=== PATIENT | female | born 1985 | race Caucasian/White ===

== ENCOUNTER → 2016-10-10 | Outpatient (CLI) | payer OTHER | END | disposition home or self-care (01) | LOC: C.LABBFT 07:44 | PROVIDERS: ATTEND Internal Medicine Endocrinology, Diabetes & Metabolism | DX: L68.0 Hirsutism (principal); R19.7 Diarrhea, unspecified; R14.0 Abdominal distension (gaseous) ==

== ENCOUNTER → 2016-10-16 | Outpatient (CLI) | payer OTHER | END | disposition home or self-care (01) | LOC: C.LABBFT 07:57 | PROVIDERS: ATTEND Internal Medicine Endocrinology, Diabetes & Metabolism | DX: L68.0 Hirsutism (principal); R19.7 Diarrhea, unspecified; R10.9 Unspecified abdominal pain; R14.0 Abdominal distension (gaseous) ==

== ENCOUNTER → 2017-06-27 | Outpatient (CLI) | payer OTHER | END | disposition home or self-care (01) | LOC: C.PAPS 12:07 | PROVIDERS: ATTEND Physician Assistant | DX: Z12.4 Encounter for screening for malignant neoplasm of cervix (principal) ==

== ENCOUNTER 2020-02-22 07:38 | Inpatient (IN) ==
[2020-02-22] MEDS ORDERED: OXYTOCIN 30 UNITS/500 ML BAG IV PRN ×2 (08:30→08:31)
[2020-02-22 08:54] LABS: Hematocrit (blood only) 39.1 % (37-47); Hemoglobin 13.2 g/dL (12.0-16.0); Mean Corpuscular Hemoglobin 29.6 pg (25-34); Mean Corpuscular Volume 87.7 fL (80-100); Platelet Count 229 K/uL (130-400); RDW Coefficient of Variation 14.9 % (11.5-14.5); RDW Standard Deviation 47.8 fL (36.4-46.3); Red Blood Count 4.46 M/uL (4.2-5.4); White Blood Count 15.67 K/uL (4.8-10.8)
[2020-02-22] MEDS: LACTATED RINGER'S 1,000 ML IV PRN ×2 (09:23→12:48)
[2020-02-22 10:38] LABS: Mean Corpuscular Hgb Conc 33.8 g/dL (32-36)
--- NOTE | 2020-02-22 10:39 | History & Physical Report ---
Date of Service February 22, 2020 Assessment & Plan (1) Supervision of normal intrauterine in primigravida: 34yo At 40.4 weeks GA. IOL for post SHELDON 1. Fetus: Cat 1 2. Labor: Will start with oxytocin, AROM when able 3. GBS Negative 4. Vitals WNL 5. Abd cyst: Notify Peds (2) Obesity affecting , antepartum: (3) Need for rhogam due to Rh negative mother: History of Present Illness Primary Care Provider: Rona Hernandez MD 34yo at 40w4d GA. Presents for late term IOL. Sanchez placed last night. Denies LOF, VB. Good FM. complicated by a abdominal cyst of unclear etiology, Rh negative, BMI of 46 and excessive maternal weight gain. US at 32 weeks shows EFW 57%, AC 56%. OB Labs: Blood Type O Negative 07/07/19 Antibody Screen NEGATIVE 11/30/19 Hemoglobin 11.9 g/dL (12.0-16.0) L 11/26/19 Hematocrit 36.5 % (37-47) L 11/26/19 Mean Corpuscular Volume 89.8 fL (80-100) 07/07/19 Platelet Count 276 K/uL (130-400) 07/07/19 Rubella IgG Antibody Immune (Immune) 07/07/19 Rapid Plasma Reagin Nonreactive (Nonreactive) 07/07/19 Hepatitis B Surface Antigen Neg (Neg) 07/07/19 HIV (1&2) Ab and P24 Ag, 4th Gener Neg (Neg) 07/07/19 Glucose 1 Hour 50 gm Load 178 mg/dl (70-130) H 09/01/19 OB Optional Labs: Chlamydia trachomatis RNA NOT DETECTED (NOT DETECTED) 07/07/19 Neisseria gonorrhoeae RNA NOT DETECTED (NOT DETECTED) 07/07/19 Thyroid Stimulating Hormone (TSH) 0.932 uIu/ml (0.300-4.500) 10/15/18 Labs Reviewed: declines cf/sma declines cfDNA declines quad 09/13/19: 85/166/108 11/26/19: 77/129/119 gbs neg Allergies Allergy/AdvReac Type Severity Reaction Status Date / Time No Known Allergies Allergy Verified 02/21/20 19:14 Home Medications Home Medications Medication Instructions Recorded Confirmed Type vit-iron fum-folic ac 1 tab PO DAILY 02/13/20 02/22/20 History [ Vitamin] Patient History Medical History (Updated 02/22/20 @ 07:54 by Shnanon Eugene RN) Abnormal biochemical finding on screening of mother cyst on kidney, pt following with MFM in [place] BMI 35.0-35.9,adult (Resolved) Encounter for anatomic survey Fatty liver (Acute) Hirsutism (Acute) Left breast lump Patient monitoring. No change. Had an ultrasound. 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 Other Information That Helps Us Care for You: No Feels Safe at Home: Yes Smoking Status: Never smoker Second Hand Exposure: No ; Hx Alcohol Use: No Hx Substance Use: No Dental Care, Regularly: Yes Physical Activity Frequency: 3-4 Times per Week Physical Exam Respiratory: normal respiratory effort; no respiratory distress and no labored breathing Cardiovascular: Rate/Rhythm: regular rate and regular rhythm Gastrointestinal (Abdomen): Inspection/Auscultation: abdomen not distended Percussion/Palpation: abdomen soft; abdomen nontender, no guarding and abdomen not rigid Psychiatric: A+Ox3, euthymic affect Genitourinary: OB Exam Abdomen: + vertex (By US) and + estimated weight (7.5-8.5) Manual OB Exam: + cervical dilation 1 cm, + cervical effacement 50% and + station high OB Exam Monitor Tracing: + external FHT monitor used, + external uterine monitor used, + category I and + normal FHT variability; no early decelerations present, no late decelerations present and no variable decelerations Results & Data Vital Signs (Past 12 Hours) Vital Signs Temp Pulse Resp BP 02/22/20 10:14 90 107/60 02/22/20 09:27 102 H 109/64 02/22/20 08:01 110 H 109/70 02/22/20 07:55 36.8 C 18 Coding Level of Care Code None Diagnoses Supervision of normal intrauterine in primigravida Z34.00 Obesity affecting , antepartum O99.210 Need for rhogam due to Rh negative mother Z29.13
[2020-02-22] MEDS ORDERED: CITRIC ACID/SODIUM CITRATE 15 ML UDC ONE (14:35)
--- NOTE | 2020-02-22 14:46 | Anesthesiology Consultation ---
Date of Service February 22, 2020 Assessment & Plan (1) Encounter for pre-operative examination: Chart Review Chart Review: Acceptable Risk for Surgery and Patient NOT seen in Pre Admission Testing Consults Requested none ASA ASA3 Proposed Anesthesia Anesthesia Type: Spinal Risk / Benefits Reviewed With: PT / POA / Parent / Guardian, Accepts Plan and Informed Consent Obtained History Height/Weight Height: 5 ft 6 in Weight: 129.274 kg Allergies Allergy/AdvReac Type Severity Reaction Status Date / Time No Known Allergies Allergy Verified 02/21/20 19:14 Medications Home Medications Medication Instructions Recorded Confirmed Last Taken vit-iron fum-folic ac 1 tab PO DAILY 02/13/20 02/22/20 02/21/20 [ Vitamin] Active Medications Generic Name Dose Route Start Last Admin Trade Name Freq PRN Reason Stop Dose Admin Lactated Ringer's 1,000 mls @ 125 mls/hr 02/22/20 08:30 02/22/20 14:28 Lr IV 02/24/20 08:29 999 mls/hr .Q8H PRN Infusion L&D Protocol Protocol Oxytocin 30 units in 500 mls @ 0 mls/hr 02/22/20 08:31 02/22/20 14:28 Pitocin IV 02/24/20 08:30 0 units/hr .Q0M PRN 0 mls/hr Labor Induction/Augmentation Titration Protocol 0 UNITS/HR NPO Date Last Intake of Fluids: 02/22/20 Time Last Intake of Fluids: 12:30 Date Last Intake of Solids: 02/22/20 Time Last Intake of Solids: 06:30 Past Medical History Medical History Abnormal biochemical finding on screening of mother cyst on kidney, pt following with MFM in [place] BMI 35.0-35.9,adult (Resolved) Encounter for anatomic survey Fatty liver (Acute) Hirsutism (Acute) Left breast lump Patient monitoring. No change. Had an ultrasound. Metabolic syndrome (Acute) Obesity (Acute) Polycystic ovarian syndrome (Acute) Striae (Acute) Tinea versicolor (Acute) Varicella Exercise / Class Metabolic Activity II 4-5 Yardwork/Stairs/Walk up hill Past Family History Family History Mother Hypertension History of pancreatic cancer Grandfather Myocardial infarction Father Bipolar 1 disorder Denies family history of Ovarian cancer Prostate cancer Breast cancer Colorectal cancer Past Surgical History Surgical History No pertinent past surgical history Past Anesthesia History No Family Hx of Anesthesia Complications History of PONV Hx of Motion Sickness Social History Smoking Status: Never smoker Hx Alcohol Use: No Hx Substance Use: No substance use type: does not use Review of Systems Negative for chest pain or shortness of breath. Patient denies active symptoms of GERD. Patient denies numbness, tingling or weakness in lower extremities. Patient denies history of abnormal bleeding or bleeding disorder. Patient denies active use of anticoagulants other than low dose aspirin. Physical Exam Vital Signs Last Vital Signs Temp 36.8 C 02/22/20 10:56 Pulse 87 02/22/20 11:53 Resp 20 02/22/20 10:56 BP 124/81 02/22/20 13:03 Constitutional + morbidly obese gravid uterus ENMT Mouth: no TMJ abnormality and oral opening not small Thyromental Distance: > or= 3.5 Finger Breadths Mallampati Class: I Neck normal visual inspection; neck extension not limited Respiratory normal respiratory effort Auscultation: lungs clear to auscultation bilaterally Cardiovascular Rate/Rhythm: regular rate and regular rhythm Heart Sounds: no murmur Neurologic moves all extremities Motor/Sensory: no sensory deficit Psychiatric Orientation: alert and oriented x 3 Testing Laboratory Results 02/22/20 08:39 Blood Type O Negative 02/22/20 08:39 Antibody Screen NEGATIVE 02/22/20 08:39
[2020-02-22] MEDS ORDERED: CEFAZOLIN 3000MG 72.5 ML IV STA (14:50)
[2020-02-22] MEDS ORDERED: OXYTOCIN 10 UNITS/ML VIAL ONE (14:56)
[2020-02-22] MEDS ORDERED: MoRPHine SULFATE PF 1 MG/ML 10 ML AMP/VIAL ONE (14:56)
[2020-02-22] MEDS ORDERED: fentaNYL citrate 100 MCG/2 ML VIAL ONE (14:56)
[2020-02-22] MEDS ORDERED: SODIUM CHLORIDE 0.9% 1000ML 1,000 ML IV SCH (15:30)
[2020-02-22] MEDS ORDERED: NALOXONE HCL 1 MG in SODIUM CHLORIDE 0.9% 1000ML 1,000 ML IV PRN (15:30)
[2020-02-22] MEDS ORDERED: LACTATED RINGER'S 500 ML IV PRN (15:30)
[2020-02-22] MEDS ORDERED: NALOXONE HCL 0.08 MG in SYRINGE 1.8 ML IV PRN (15:30)
[2020-02-22] MEDS ORDERED: ePHEDrine sulfate 50 MG/ML AMP IV PRN (15:30)
[2020-02-22] MEDS ORDERED: DiphenhydrAMINE HCL 50 MG/ML VIAL IV PRN (15:30)
[2020-02-22] MEDS ORDERED: ONDANSETRON INJ 2 MG/ML 2 ML VIAL IV PRN (15:30)
[2020-02-22] MEDS ORDERED: HYDROmorphone INJ 0.5 MG/0.5 ML SYR IV PRN (15:30)
[2020-02-22] MEDS ORDERED: NO NARCOTICS OR SEDATIVES SCH (15:30)
[2020-02-22] MEDS ORDERED: KETOROLAC 30 MG/ML VIAL IV PRN (15:30)
[2020-02-22] MEDS ORDERED: ACETAMINOPHEN 1000 MG/100 ML IV IV PRN (15:30)
[2020-02-22] MEDS ORDERED: NALOXONE HCL 0.4 MG/1 ML VIAL/CARP IV PRN (15:30)
[2020-02-22] MEDS ORDERED: NALBUPHINE HCL INJ 10 MG/ML AMP IV PRN (15:30)
[2020-02-22] MEDS ORDERED: MoRPHine SULFATE PF 1 MG/ML 10 ML AMP/VIAL INT SPINAL ONE (15:30)
[2020-02-22] MEDS ORDERED: DC INTRASPINAL MORPHINE SCH (15:30)
[2020-02-22] MEDS ORDERED: ONDANSETRON INJ 2 MG/ML 2 ML VIAL ONE (15:47)
[2020-02-22] MEDS ORDERED: PHENYLEPHRINE 100MCG/ML 5ML SYR ONE (16:01)
[2020-02-22] MEDS ORDERED: MAGNESIUM HYDROXIDE SUSP 30 ML UDC PO PRN (16:08)
[2020-02-22] MEDS ORDERED: BENZOCAINE 20% AER SPR 82.5 GM CAN EXT PRN (16:08)
[2020-02-22] MEDS ORDERED: SENNA 8.6 MG TAB PO PRN (16:08)
[2020-02-22] MEDS ORDERED: DIPHTHERIA/TETANUS/PERTUSSIS 0.5 ML SYR/VIAL IM ONE (16:08)
[2020-02-22] MEDS ORDERED: HYDROCORTISONE ACETATE 25 MG SUPP PR PRN (16:08)
[2020-02-22] MEDS ORDERED: SUPERCREAM 0.870% 15 GM JAR EXT PRN (16:08)
--- NOTE | 2020-02-22 16:30 | Post Operative Brief Note ---
PG Immediate Post Op with CF Date of Surgery February 22, 2020 Pre & Post Diagnosis Operation Date: 02/22/20 15:00 Pre-Op Diagnosis: 1. IUP at 40 4/7 weeks 2. intolerance of labor 3. Inability to augment labor remote from delivery Post-Op Diagnosis: Same I identified the patient and participated in the time-out.: Yes Procedure Operation Date: 02/22/20 15:00 Actual Procedures p Section in LD with the of a live male child at 1534. - Catrachito Ortiz MD Surgeon Catrachito Ortiz MD Water Valve Mechanic Hector Nazario PGY1 Estimated Blood Loss 600 Findings Consistent with Post-Op Diagnosis Specimens Specimen Description: 1. Placenta- Hold 2. Cord Blood Drains Chopra Catheter (clear yellow urine noted upon insertion of chopra)
[2020-02-22] MEDS ORDERED: KETOROLAC 30 MG/ML VIAL ONE (16:45)
--- NOTE | 2020-02-22 17:33 | Operative Report (OR) ---
DATE OF OPERATION: 02/22/2020 PROCEDURE: Primary low transverse section. SURGEON: Catrachito Ortiz MD. EPIC APPLICATION COORDINATOR: Hector Nzaario MD PGY-1. PREOPERATIVE DIAGNOSES: 1. intolerance of labor. 2. Inability to augment labor, remote from delivery. POSTOPERATIVE DIAGNOSES: 1. intolerance of labor. 2. Inability to augment labor, remote from delivery, status post procedure. ESTIMATED BLOOD LOSS: 600 mL. DRAINS: Sanchez catheter. FLUIDS: Continuous lactated Ringer. URINE OUTPUT: Per Sanchez catheter. COMPLICATIONS: None. FINDINGS: Viable male infant with weight pending and Apgars pending. INDICATIONS: Cici is a 34-year-old who presented for induction of labor for post-SHELDON. At initial evaluation, the patient was found to be 1 cm dilated, 50% effaced with negative 3-4 station. The fetus was noted to be cephalic by ultrasound. The patient was started on oxytocin per regular protocol. The patient reached a Pitocin level of approximately 8, at which time she began having recurrent late decelerations. Maternal positioning and resuscitation was attempted with initial resolution; however, the late decelerations and minimal variability did recur. At that point, the patient was still 1 cm dilated, 50% effaced and negative 3-4 station. We discussed the cervical findings and the intolerance of labor and that we were unlikely to achieve vaginal delivery due to the intolerance of labor, remote from delivery. At that time, the patient was offered an attempt to continue labor versus a section. The patient opted to proceed with a section. Consents were reviewed and signed. DESCRIPTION OF PROCEDURE: The patient was taken to the operating room after consents were ensured. The spinal anesthesia was obtained without difficulty. The patient was then prepped and draped in normal sterile fashion. Preprocedural timeout was performed. The abdomen was tested to ensure adequate surgical levels, after which a Pfannenstiel skin incision was made with a knife. This was carried down to underlying fascia with the Bovie and blunt dissection. The fascia was nicked at the midline with the knife. The fascial incision was extended laterally in each direction with pickups and Davis scissors. The superior aspect of the fascia was then grasped with Kochers x2, elevated off the underlying rectus muscles using the knife and blunt dissection. The inferior aspect of the fascia was then grasped with Kochers x2, elevated off the underlying rectus muscle using blunt dissection. The abdomen was entered bluntly and placed on stretch to provide adequate room for delivery. A bladder blade was inserted and a bladder flap was created in normal fashion. A low transverse uterine incision was then made with a knife. This was extended laterally with blunt dissection and the head of the was noted to be cephalic and was delivered through the hysterotomy without difficulty. The body and shoulders quickly followed. The was noted to be vigorous soon after delivery and a short delay of cord clamping was initiated. The cord was then double clamped and cut. was taken over to the waiting nursery staff. Cord segment and cord blood was then obtained. Attention was then turned to deliver the placenta, which was delivered intact with 3-vessel cord with gentle cord traction. The cord was then removed with uterine massage and gentle cord traction, was noted to be intact, 3-vessel cord. The uterus was then exteriorized and it was wrapped in a wet lap and several passes were made to remove any remaining membranes with a dry lap. The hysterotomy was then reapproximated with 0 Vicryl in a continuous running locked suture. A second imbricating layer was then performed. Hysterotomy was then reinspected and noted to have a small area of continued bleeding and hemostasis was achieved with a [id number] stitch. Posterior cul-de-sac was cleaned of clots and debris. The uterus, ovaries and tubes were evaluated and noted to be within normal limits. The uterus was then returned to the maternal abdomen, and the right and left pericolic gutters were cleaned of clots and debris and noted to be hemostatic. The hysterotomy was reinspected and noted to be hemostatic. The muscle, subcutaneous and fascial layers were inspected and noted to be hemostatic. The fascia was then closed with 0 Vicryl in continuous running stitch. The subcutaneous layers were reapproximated with plain in 3 layers. The skin was reapproximated with 3-0 Vicryl on a Reji needle. Needle, sponge and instrument counts were correct at the completion of the case. The patient received 3 grams of Ancef at the start of the case and 20 units of Pitocin after delivery of the placenta. Both mother and were stable in the immediate post-delivery period. I attest to the content of the Intraoperative Record and any orders documented therein. Any exception s are noted below.
[2020-02-22] MEDS: OXYTOCIN 20 UNITS in LACTATED RINGER'S 1,000 ML IV SCH (18:24)
[2020-02-22] MEDS: SIMETHICONE 80 MG CHEW PO SCH ×2 (19:04→20:39)
--- NOTE | 2020-02-22 19:08 | Anesthesiology Progress Note ---
Date of Service February 22, 2020 Anesthesia Post Procedure Vital Signs Vital Signs: Temp Pulse Resp BP Pulse Ox 02/22/20 19:04 95 H 96 02/22/20 18:59 89 96 02/22/20 18:58 88 105/55 L 02/22/20 18:54 92 H 96 02/22/20 18:49 90 96 02/22/20 18:48 99 H 118/80 02/22/20 18:44 86 97 02/22/20 18:42 84 110/72 02/22/20 18:40 36.5 C 20 02/22/20 18:39 97 H 98 02/22/20 18:34 88 97 02/22/20 18:29 85 98 02/22/20 18:24 90 97 02/22/20 18:19 90 122/58 L 96 02/22/20 18:14 106 H 94 02/22/20 18:10 88 20 97 02/22/20 18:09 83 96 02/22/20 18:04 80 96 02/22/20 17:59 90 95 02/22/20 17:54 94 H 96 02/22/20 17:49 90 95 02/22/20 17:44 79 95 02/22/20 17:40 36.5 C 79 20 95 02/22/20 17:39 87 96 02/22/20 17:38 85 107/59 L 02/22/20 17:36 92 H 137/83 02/22/20 17:34 81 96 02/22/20 17:30 85 20 95 02/22/20 17:29 85 95 02/22/20 17:28 87 111/61 02/22/20 17:24 90 95 02/22/20 17:19 85 105/59 L 97 02/22/20 17:17 20 02/22/20 17:14 81 95 02/22/20 17:10 20 02/22/20 17:09 77 96 02/22/20 17:07 82 93/48 L 02/22/20 17:04 86 95 02/22/20 17:00 77 20 96 02/22/20 16:59 80 95 20 16:58 79 94 02/22/20 16:54 78 97 02/22/20 16:50 36.5 C 87 20 94 02/22/20 16:49 84 94 05/19/20 16:44 85 91 02/22/20 16:39 81 98 02/22/20 16:38 76 118/71 02/22/20 13:03 124/81 02/22/20 11:53 87 106/65 02/22/20 10:56 36.8 C 85 20 105/62 02/22/20 10:14 90 107/60 02/22/20 09:27 102 H 109/64 02/22/20 08:01 110 H 109/70 02/22/20 07:55 36.8 C 18 Transfer of Care Handoff Completed per policy Notes Mental Status: alert / awake / arousable and participated in evaluation Nausea / Vomiting: adequately controlled Pain: adequately controlled Airway Patency, RR, SpO2: stable & adequate BP & HR: stable & adequate Hydration State: stable & adequate Neuraxial Anesthesia: was administered and sensory block is resolving Anesthetic Complications: no major complications apparent and Pt Satisfied with anesthetic care
[2020-02-22] MEDS: DOCUSATE SODIUM 100 MG CAP PO SCH (20:39)
[2020-02-23] MEDS: OXYTOCIN 20 UNITS in LACTATED RINGER'S 1,000 ML IV SCH (03:12)
--- NOTE | 2020-02-23 05:58 | Obstetrical Progress Note ---
Date of Service February 23, 2020 Assessment & Plan Admission and Anticipated Discharge Date Admission Date: February 22, 2020 35 y/o s/p pCS for non reassuring heart tones and intolerance of labor @ 40.4 weeks complicated by abdominal cyst, Rh negative status in mother, and BMI 46 - POD# 1 - GBS negative, Blood Type O- - Pain well controlled - Routine post-operative care - After discharge will have 6 week follow up with Dr. Ortiz. Supervising Physician Co-Signing Physician Notes Patient seen and evaluated and agree with the above findings and plan. Day 1 LTCS. Doing well. Routine care Subjective Doing well this morning her pain is well controlled. She has had fluid w/o nausea or vomiting. She states her bleeding is "normal". She had no questions or concerns this morning. She has not been walking yet due to chopra in place and has not passed gas yet. Review of Systems Review of Systems: Denies fever, chills, and sweats. Denies shortness of breath, difficulty breathing, and palpitations. Admits feeling indigestion. Denies breast pain. Denies dysuria. Denies headache. Physical Exam Physical Exam: General: Alert, oriented. No acute distress. Cardiac: Regular rate and rhythm, no murmurs/rubs/gallops. Respiratory: Symmetrical chest rise. No respiratory distress. Abdomen: Soft, nontender, nondistended. Bowel sounds present. Uterus: Uterine fundus firm, palpable 1 cm below umbilicus. Lower Extremities: No lower extremity edema or swelling. No deep calf pain. Lucie's negative bilaterally. surgical incision w/ dressing intact, clean, dry. No warmth, erythema, discharge, around dressing. Results & Data ([facility]) Vital Signs (Past 12 Hours) Vital Signs Temp Pulse Pulse Resp BP BP Pulse Ox 02/23/20 04:45 18 96 02/23/20 04:35 36.8 C 96 H 18 91/61 L 97 02/23/20 03:15 16 96 02/23/20 02:45 16 96 02/23/20 01:50 20 97 02/23/20 00:45 16 98 02/22/20 23:50 37 C 97 H 18 90/59 L 96 02/22/20 22:45 18 98 02/22/20 21:45 18 99 05/19/20 20:45 16 98 02/22/20 19:45 36.4 C L 93 H 16 96/67 L 98 02/22/20 19:09 87 98 02/22/20 19:08 83 109/63 02/22/20 19:04 95 H 96 02/22/20 18:59 89 96 02/22/20 18:58 88 105/55 L 02/22/20 18:54 92 H 96 02/22/20 18:49 90 96 02/22/20 18:48 99 H 118/80 02/22/20 18:44 86 97 02/22/20 18:42 84 110/72 02/22/20 18:40 36.5 C 20 02/22/20 18:39 97 H 98 02/22/20 18:34 88 97 02/22/20 18:29 85 98 02/22/20 18:24 90 97 02/22/20 18:19 90 122/58 L 96 02/22/20 18:14 106 H 94 02/22/20 18:10 88 20 97 02/22/20 18:09 83 96 02/22/20 18:04 80 96 02/22/20 17:59 90 95 Resident Activity Tracking Resident Involvement: Resident Care Provided Care Provided: Adult Hospital Medicine
[2020-02-23 06:55] LABS: Basophils # (auto) 0.01 K/uL (0-0.2); Basophils % (auto) 0.1 %; Eosinophils # (auto) 0.12 K/uL (0-0.5); Eosinophils % (auto) 0.9 %; Hematocrit (blood only) 31.9 % (37-47); Hemoglobin 10.5 g/dL (12.0-16.0); Immature Granulocytes # (auto) 0.04 K/uL (0.00-0.02); Immature Granulocytes % (auto) 0.3 %; Lymphocytes # (auto) 1.73 K/uL (1.2-3.4); Mean Corpuscular Hgb Conc 32.9 g/dL (32-36); Mean Corpuscular Volume 88.1 fL (80-100); Mean Platelet Volume 10.5 fL (7.4-10.4); Monocytes # (auto) 1.06 K/uL (0.11-0.59); Neutrophils # (auto) 10.34 K/uL (1.4-6.5); Neutrophils % (auto) 77.7 %; Platelet Count 192 K/uL (130-400); RDW Coefficient of Variation 14.9 % (11.5-14.5); RDW Standard Deviation 48.1 fL (36.4-46.3); Red Blood Count 3.62 M/uL (4.2-5.4)
[2020-02-23] MEDS: SIMETHICONE 80 MG CHEW PO SCH ×4 (08:08→20:59)
[2020-02-23] MEDS: PRENATAL VITAMIN 1 TAB PO SCH (08:09)
[2020-02-23] MEDS: FERROUS SULFATE 325 MG TAB PO SCH (08:09)
[2020-02-23] MEDS: DOCUSATE SODIUM 100 MG CAP PO SCH ×2 (08:09→21:00)
--- NOTE | 2020-02-23 09:07 | Anesthesiology Progress Note ---
Date of Service February 23, 2020 Anesthesia Post Procedure Vital Signs Vital Signs: Temp Pulse Pulse Resp BP BP Pulse Ox 02/23/20 08:30 18 98 02/23/20 08:00 98.2 F 87 18 95/63 L 98 02/23/20 07:26 18 95 02/23/20 06:40 16 92 02/23/20 05:45 18 98 02/23/20 04:45 18 96 02/23/20 04:35 98.2 F 96 H 18 91/61 L 97 02/23/20 03:15 16 96 02/23/20 02:45 16 96 02/23/20 01:50 20 97 02/23/20 00:45 16 98 02/22/20 23:50 98.6 F 97 H 18 90/59 L 96 02/22/20 22:45 18 98 02/22/20 21:45 18 99 02/22/20 20:45 16 98 02/22/20 19:45 97.5 F L 93 H 16 96/67 L 98 02/22/20 19:09 87 98 02/22/20 19:08 83 109/63 02/22/20 19:04 95 H 96 02/22/20 18:59 89 96 02/22/20 18:58 88 105/55 L 02/22/20 18:54 92 H 96 02/22/20 18:49 90 96 02/22/20 18:48 99 H 118/80 20 18:44 86 97 20 18:42 84 110/72 20 18:40 97.7 F 20 02/22/20 18:39 97 H 98 02/22/20 18:34 88 97 20 18:29 85 98 20 18:24 90 97 20 18:19 90 122/58 L 96 02/22/20 18:14 106 H 94 02/22/20 18:10 88 20 97 20 18:09 83 96 20 18:04 80 96 20 17:59 90 95 20 17:54 94 H 96 20 17:49 90 95 1920 17:44 79 95 20 17:40 97.7 F 79 20 95 02/22/20 17:39 87 96 02/22/20 17:38 85 107/59 L 02/22/20 17:36 92 H 137/83 02/22/20 17:34 81 96 02/22/20 17:30 85 20 95 02/22/20 17:29 85 95 02/22/20 17:28 87 111/61 02/22/20 17:24 90 95 02/22/20 17:19 85 105/59 L 97 02/22/20 17:17 20 02/22/20 17:14 81 95 02/22/20 17:10 20 02/22/20 17:09 77 96 02/22/20 17:07 82 93/48 L 02/22/20 17:04 86 95 02/22/20 17:00 77 20 96 02/22/20 16:59 80 95 02/22/20 16:58 79 94 02/22/20 16:54 78 97 02/22/20 16:50 97.7 F 87 20 94 02/22/20 16:49 84 94 02/22/20 16:44 85 91 02/22/20 16:39 81 98 02/22/20 16:38 76 118/71 02/22/20 13:03 124/81 02/22/20 11:53 87 106/65 02/22/20 10:56 98.2 F 85 20 105/62 02/22/20 10:14 90 107/60 02/22/20 09:27 102 H 109/64 Transfer of Care Handoff Completed per policy Notes Mental Status: alert / awake / arousable and participated in evaluation Nausea / Vomiting: adequately controlled Pain: adequately controlled Airway Patency, RR, SpO2: stable & adequate BP & HR: stable & adequate Hydration State: stable & adequate Anesthetic Complications: no major complications apparent and Pt Satisfied with anesthetic care
[2020-02-23] MEDS ORDERED: PROMETHAZINE HCL 25 MG in SODIUM CHLORIDE 0.9% 50 ML IV PRN (09:31)
[2020-02-23] MEDS ORDERED: MEPERIDINE HCL 50 MG/ML CARP IV PRN (09:31)
[2020-02-23] MEDS ORDERED: ONDANSETRON INJ 2 MG/ML 2 ML VIAL IV PRN (09:31)
[2020-02-23] MEDS ORDERED: OXYCODONE/ACETAMINOPHEN 5mg/325mg TAB PO PRN (09:31)
[2020-02-23] MEDS ORDERED: KETOROLAC 30 MG/ML VIAL IV PRN (09:31)
[2020-02-23] MEDS ORDERED: DiphenhydrAMINE HCL 50 MG/ML VIAL IV PRN (09:31)
[2020-02-23] MEDS: IBUPROFEN 600 MG TAB PO PRN ×2 (16:25→22:38)
[2020-02-23] MEDS ORDERED: bisacodyL 5 MG TABEC PO SCH (20:00)
--- NOTE | 2020-02-24 05:45 | Obstetrical Progress Note ---
Date of Service February 24, 2020 Assessment & Plan Admission and Anticipated Discharge Date Admission Date: February 22, 2020 35 y/o s/p pCS for non reassuring heart tones and intolerance of labor @ 40.4 weeks complicated by abdominal cyst, Rh negative status in mother, and BMI 46 - POD# 2 - GBS negative, Blood Type O- - Rhogam given - Pain well controlled - Routine post-operative care - After discharge will have 6 week follow up with Dr. Ortiz. Supervising Physician Co-Signing Physician Notes Resident Physician Supervision Note: I was present with Dr. Nazario during the history and exam. I discussed the case with the resident and agree with the findings and plan as documented in the note. Any exceptions or clarifications are listed here: Patient desires d/c. Instructions given. F/U in 6 weeks for pp check Documented By: Kaveh Franklin Jr, MD, FACOG Subjective Doing well this morning she is walking, voiding, passed stool and eating without nausea or vomiting. She is and this is going well. Pain is 2/10 and improved with pain medication. Her bleeding was described as "normal". Review of Systems Review of Systems: Denies fever, chills, and sweats. Denies shortness of breath, difficulty breathing, and palpitations. Admits feeling indigestion. Denies breast pain. Denies dysuria. Denies headache. Physical Exam Physical Exam: General: Alert, oriented. No acute distress. Cardiac: Regular rate and rhythm, no murmurs/rubs/gallops. Respiratory: Symmetrical chest rise. No respiratory distress. Abdomen: Soft, nontender, nondistended. Bowel sounds present. Uterus: Uterine fundus firm, palpable 2 cm below umbilicus. Lower Extremities: No lower extremity edema or swelling. No deep calf pain. Lucie's negative bilaterally. surgical incision w/ dressing intact, clean, dry. No warmth, erythema, discharge, around dressing. Results & Data ([facility]) Vital Signs (Past 12 Hours) Vital Signs Temp Pulse Resp BP 02/24/20 00:01 36.8 C 85 18 105/71 02/23/20 19:30 37.3 C 93 H 16 107/73 Resident Activity Tracking Resident Involvement: Resident Care Provided Care Provided: Adult [facility]
[2020-02-24 06:31] LABS: Hematocrit (blood only) 30.5 % (37-47); Hemoglobin 10.2 g/dL (12.0-16.0)
[2020-02-24] MEDS: DOCUSATE SODIUM 100 MG CAP PO SCH (08:52)
[2020-02-24] MEDS: SIMETHICONE 80 MG CHEW PO SCH ×2 (08:52→13:09)
[2020-02-24] MEDS: PRENATAL VITAMIN 1 TAB PO SCH (08:52)
[2020-02-24] MEDS: FERROUS SULFATE 325 MG TAB PO SCH (08:53)
[2020-02-24] MEDS: IBUPROFEN 600 MG TAB PO PRN ×2 (08:53→13:09)
[2020-02-24] MEDS ORDERED: bisacodyL 10 MG SUPP PR PRN (16:08)
--- NOTE | 2020-02-29 14:58 | Discharge Summary (DS) ---
HOSPITAL COURSE: The patient was admitted for a late-term induction of labor. The patient ultimately underwent a primary low transverse section, which was performed without complication; please see operative report for additional details. The patient remained in house until day 2 for recovery and recovered well without complications. The patient was discharged home on postoperative day 2, was discharged in stable condition. The patient was provided both written and verbal discharge instructions and will be scheduled for followup at 6 weeks for routine care. The patient was instructed if she has any issues, to call earlier for appointments.
== END 2020-02-24 16:46 | disposition home or self-care (01) | DRG 787 ==
LOC: 4S1 07:38 → 4S2 19:40

== ENCOUNTER 2022-09-09 05:27 | Inpatient (IN) ==
--- NOTE | 2022-08-28 14:20 | Anesthesiology Consultation ---
Date of Service August 28, 2022 Assessment & Plan (1) Encounter for pre-operative examination: COVID screening: Per assessment on 08/28: No known COVID-19 positive contacts or current COVID-19 related symptoms. Travel screen negative. Patient vaccinated. At surgeon discretion if preop Covid testing being done. Chart Review Chart Review: data entry manager initiated History Surgery Operation Date: 09/09/22 07:30 Proposed Procedures p Section (Delivery of Baby Through Abdominal Incision) - Caren Burgos MD, FACOG Height/Weight Height: 5 ft 6 in Weight: 121.109 kg Allergies Allergy/AdvReac Type Severity Reaction Status Date / Time No Known Allergies Allergy Verified 08/28/22 13:41 Medications Home Medications Medication Instructions Recorded Confirmed Last Taken prenat.vits,latanya,[id number] 1 tab PO QPM 01/29/22 08/28/22 Unknown acetone (urine) test (Ketone Urine #50 ea 04/26/22 08/27/22 Unknown Test strips) blood sugar diagnostic (OneTouch #150 ea 04/26/22 08/27/22 Unknown Verio test strips) blood-glucose meter (OneTouch #1 ea 04/26/22 08/27/22 Unknown Verio Flex Meter) lancets 33 gauge (OneTouch Delica #150 ea 04/26/22 08/28/22 Unknown Lancets) pen needle, diabetic 32 gauge x #50 ea 06/04/22 08/28/22 Unknown 5/32" (BD Ultra-Fine Danna Pen Needle) albuterol sulfate 90 mcg/actuation 1 inh inhalation QID PRN sob 08/28/22 08/28/22 Unknown breath activated powder inhaler (ProAir RespiClick) escitalopram oxalate 10 mg tablet 10 mg PO QAM 08/28/22 08/28/22 Unknown (Lexapro) insulin NPH isoph U-100 human 100 14 unit subcut QPM 08/28/22 08/28/22 Unknown unit/mL (3 mL) subcutaneous pen (Novolin N Flexpen) Past Medical History Medical History (Updated 08/28/22 @ 14:18 by Monika Newell) Anxiety Fatty liver Gestational diabetes Metabolic syndrome Obesity Polycystic ovarian syndrome Past Family History Family History Mother History of pancreatic cancer Hypertension Grandfather Myocardial infarction Father Bipolar 1 disorder Other No family history of adverse response to anesthesia Denies family history of Ovarian cancer Prostate cancer Breast cancer Colorectal cancer Past Surgical History Surgical History H/O section (02/2020) Social History Smoking Status: Never smoker Do You Dip or Chew Tobacco: No Hx Alcohol Use: No Hx Substance Use: No substance use type: does not use
--- NOTE | 2022-09-07 20:22 | History & Physical Report ---
Date of Service September 07, 2022 Assessment & Plan (1) 39 weeks gestation of : (2) Previous delivery affecting , antepartum: (3) Rh negative status during : (4) Need for MMR vaccine: (5) Insulin controlled gestational diabetes mellitus (GDM) during : (6) Supervision of elderly multigravida: (7) Obesity: Plan Will admit on 09/09 for planned repeat c/s. Plan labs, iv. Consent reviewed and signed. Preop, postop instructions and course reviewed. Patient and partner denied further questions. History of Present Illness Chief Complaint: planned section. Primary Care Provider: Rona Hernandez MD 37yo at 39+wks ega on day of her admission for planned section with history of prior section and desires repeat section. Patient has denied leaking, bleeding or contractions. Good movement. Declines tubal. PNC c/b 1. Prior c/s 2. GDM on insulin, takes bedtime nph, has instructions from Endo re: dosing night prior to surgery 3. RH neg, had rhogam, eval pp 4. AMA 5. Obesity 6. Needs MMR pp 7. History of pp anxiety, plans lexapro pp via PCP PNL rh neg, ri, gbs neg OBH: c/s x 1 GYNH: nl paps, no stds Allergies Allergy/AdvReac Type Severity Reaction Status Date / Time No Known Allergies Allergy Verified 09/06/22 13:38 Home Medications Medication Instructions Recorded Confirmed Type prenat.vits,latanya,[id number] 1 tab PO QPM 01/29/22 09/06/22 History acetone (urine) test (Ketone Urine #50 ea 04/26/22 09/06/22 Rx Test strips) blood sugar diagnostic (OneTouch #150 ea 04/26/22 09/06/22 Rx Verio test strips) blood-glucose meter (OneTouch #1 ea 04/26/22 09/06/22 Rx Verio Flex Meter) lancets 33 gauge (OneTouch Delica #150 ea 04/26/22 09/06/22 Rx Lancets) pen needle, diabetic 32 gauge x #50 ea 06/04/22 09/06/22 Rx 5/32" (BD Ultra-Fine Danna Pen Needle) albuterol sulfate 90 mcg/actuation 1 inh inhalation QID PRN sob 08/28/22 09/06/22 History breath activated powder inhaler (ProAir RespiClick) escitalopram oxalate 10 mg tablet 10 mg PO QAM 08/28/22 09/06/22 History (Lexapro) insulin NPH isoph U-100 human 100 14 unit subcut QPM 08/28/22 09/06/22 History unit/mL (3 mL) subcutaneous pen (Novolin N Flexpen) Patient History Medical History (Updated 09/07/22 @ 20:27 by Caren Burgos MD, FACOG) Anxiety Fatty liver Gestational diabetes Metabolic syndrome Obesity Polycystic ovarian syndrome Surgical History H/O section (02/2020) Family History Mother History of pancreatic cancer Hypertension Grandfather Myocardial infarction Father Bipolar 1 disorder Other No family history of adverse response to anesthesia Denies family history of Ovarian cancer Prostate cancer Breast cancer Colorectal cancer Social History (Updated 08/30/22 @ 08:54 by Dolores Bangura, KIESHA) Smoking Status: Never smoker Second Hand Exposure: No; Hx Alcohol Use: No Hx Substance Use: No Preferred Language: Occitan Communication Ability: Effective Visual Impairment: No Limitations Hearing Ability: Normal Receiver Required: No Beliefs That Will Affect Care: None marital status: marital status details: Binh Vogel (34) [phone] Current Living Situation: Spouse Current Living Situation Comment: Lives with spouse and son current occupational status: employed current occupation: [employer] Feels Safe at Home: Yes Childhood Exposure to Second-Hand Smoke: No Dental Care, Regularly: Yes Physical Activity Frequency: 3-4 Times per Week Gender Identity: Female Assistive Devices: Contacts Review of Systems as per Subjective / HPI Physical Exam Constitutional: WD/WN, vitals as above Respiratory: normal respiratory effort, lungs clear to auscultation Cardiovascular: Rate/Rhythm: regular rate and regular rhythm Gastrointestinal (Abdomen): soft gravid nt, +FHTS Musculoskeletal: no edema nontender calves Neurologic: grossly normal Psychiatric: A+Ox3, euthymic affect Coding Level of Care Code None Diagnoses 39 weeks gestation of Z3A.39 Previous delivery affecting , antepartum O34.219 Rh negative status during O26.899; Z67.91 Need for MMR vaccine Z23 Insulin controlled gestational diabetes mellitus (GDM) during O24.414 Supervision of elderly multigravida O09.529 Obesity E66.9
[2022-09-09] MEDS ORDERED: CITRIC ACID/SODIUM CITRATE 15 ML UDC PO SCH (06:00)
[2022-09-09] MEDS ORDERED: ceFAZolin 3,000 MG in DEXTROSE 5% 50 ML IV SCH (06:00)
[2022-09-09] MEDS ORDERED: LACTATED RINGER'S 1,000 ML IV SCH ×2 (06:00→09:39)
[2022-09-09] MEDS ORDERED: SODIUM CHLORIDE 0.9% 250 ML IV PRN (06:04)
[2022-09-09 06:35] LABS: Basophils # (auto) 0.03 K/uL (0-0.2); Basophils % (auto) 0.3 %; Eosinophils # (auto) 0.12 K/uL (0-0.50); Eosinophils % (auto) 1.4 %; Hematocrit (blood only) 35.1 % (34.1-44.9); Hemoglobin 11.8 g/dl (12.0-16.0); Immature Granulocytes # (auto) 0.03 K/uL (0.00-0.02); Immature Granulocytes % (auto) 0.3 %; Lymphocytes % (auto) 30.8 %; Mean Corpuscular Hemoglobin 28.9 pg (25.0-34.0); Mean Corpuscular Hgb Conc 33.6 g/dL (32.0-36.0); Mean Corpuscular Volume 85.8 fL (80.0-100.0); Mean Platelet Volume 11.3 fL (9.4-12.3); Monocytes # (auto) 0.48 K/uL (0.24-0.82); Monocytes % (auto) 5.5 %; Neutrophils # (auto) 5.42 K/uL (1.4-6.5); Neutrophils % (auto) 61.7 %; Platelet Count 193 K/uL (130-400); RDW Coefficient of Variation 15.4 % (11.5-14.5); RDW Standard Deviation 47.5 fL (36.4-46.3); Red Blood Count 4.09 M/uL (3.93-5.22); White Blood Count 8.78 K/ul (4.8-10.8)
[2022-09-09] MEDS ORDERED: MoRPHine SULFATE PF 1 MG/ML 10 ML AMP/VIAL ONE (06:47)
[2022-09-09] MEDS ORDERED: OXYTOCIN 10 UNITS/ML 10ML VIAL ONE (06:47)
[2022-09-09] MEDS ORDERED: fentaNYL citrate 100 MCG/2 ML VIAL ONE (06:47)
[2022-09-09] MEDS ORDERED: LACTATED RINGER'S 500 ML IV PRN (07:06)
[2022-09-09] MEDS ORDERED: NALBUPHINE HCL INJ 10 MG/ML AMP IV PRN (07:06)
[2022-09-09] MEDS ORDERED: MoRPHine SULFATE 2 MG/ML CARP IV PRN (07:06)
[2022-09-09] MEDS ORDERED: ePHEDrine sulfate 50 MG/ML AMP IV PRN (07:06)
[2022-09-09] MEDS ORDERED: NALOXONE HCL 0.4 MG/1 ML VIAL/CARP IV PRN (07:06)
[2022-09-09] MEDS ORDERED: diphenhydrAMINE 50 MG/ML VIAL IV PRN (07:06)
[2022-09-09] MEDS ORDERED: MoRPHine SULFATE PF 1 MG/ML 10 ML AMP/VIAL INT SPINAL ONE (07:06)
[2022-09-09] MEDS ORDERED: KETOROLAC 30 MG/ML VIAL IV PRN (07:06)
[2022-09-09] MEDS ORDERED: NALOXONE HCL 1 MG in SODIUM CHLORIDE 0.9% 1000ML 1,000 ML IV PRN (07:06)
[2022-09-09] MEDS ORDERED: NALOXONE HCL 0.08 MG in SYRINGE 1.8 ML IV PRN (07:06)
[2022-09-09] MEDS ORDERED: ONDANSETRON INJ 2 MG/ML 2 ML VIAL IV PRN (07:06)
[2022-09-09] MEDS ORDERED: SODIUM CHLORIDE 0.9% 1000ML 1,000 ML IV SCH (07:15)
[2022-09-09] MEDS ORDERED: DC INTRASPINAL MORPHINE SCH (07:15)
[2022-09-09] MEDS ORDERED: NO NARCOTICS OR SEDATIVES SCH (07:15)
--- NOTE | 2022-09-09 07:22 | History & Physical Bridge Note ---
Date of Service September 09, 2022 History & Physical Bridge Note I have examined the patient, reviewed the History & Physical and in the interval since the performance of the History & Physical I have noted the following changes of clinical significance: no changes noted
[2022-09-09] MEDS ORDERED: ePHEDrine sulfate 50 MG/ML SYR ONE (07:55)
[2022-09-09] MEDS ORDERED: PHENYLEPHRINE 100MCG/ML 5ML SYR ONE (07:55)
[2022-09-09] MEDS ORDERED: METHYLERGONOVINE MALEATE 0.2 MG/ML AMP ONE (08:22)
[2022-09-09] MEDS ORDERED: KETOROLAC 30 MG/ML VIAL ONE (08:22)
--- NOTE | 2022-09-09 08:56 | Post Operative Brief Note ---
PG Immediate Post Op with CF Date of Surgery September 09, 2022 Pre & Post Diagnosis Operation Date: 09/09/22 07:30 Pre-Op Diagnosis: 39 Weeks Gestation of ;Previous Caesarean Section affecting Post-Op Diagnosis: Same; Delivery of a live baby boy at 0809 I identified the patient and participated in the time-out.: Yes Procedure Operation Date: 09/09/22 07:30 Actual Procedures p Repeat Low Transverse Section (Delivery of Baby Through Abdominal Incision) - Caren Burgos MD, FACOG Surgeon Caren Burgos MD, FACOG [employer] Jeana Estimated Blood Loss 600 Findings Consistent with Post-Op Diagnosis (viable male apgars 8,9. omentum adhesed to anterior abdominal wall and fascia on right. normal uterus, tubes and ovaries bilaterally) Fluids 1000cc Specimens Specimen Description: A. Placenta-hold B. Cord Blood Drains Sanchez Catheter Anesthesia Type Spinal Complications none Disposition Accompanied Patient To Recovery: No Disposition: L&D
--- NOTE | 2022-09-09 09:07 | Operative Report ---
PG Post Operative Report Pre & Post Diagnosis Operation Date: 09/09/22 07:30 Pre-Op Diagnosis: 39 Weeks Gestation of Previous Section, Desires repeat section Post-Op Diagnosis: Same I identified the patient and participated in the time-out.: Yes Procedure Operation Date: 09/09/22 07:30 Actual Procedures p Repeat Low Transverse Section (Delivery of Baby Through Abdominal Incision) - Caren Burgos MD, FACOG Surgeon Caren Burgos MD, FACOG [employer] Jeana Estimated Blood Loss 600 Findings Consistent with Post-Op Diagnosis (viable male apgars 8,9. omentum adhesed to an terior abdominal wall and fascia on right. normal uterus, tubes and ovaries bilaterally) Fluids 1000cc Specimens cord blood Drains chopra Anesthesia Type Spinal Complications none Disposition Accompanied Patient To Recovery: No Disposition: L&D Indications 37yo at 39wks nirmal presents to L&D for planned c/s after prior c/s. She is gestational diabetic on insulin. Ready to proceed to c/s. Description of Procedure The patient was taken to the operating room and identified. After adequate anesthesia was obtained, she was placed in the supine position with a leftward tilt on the operating table and prepped and draped in the usual sterile fashion. A chopra catheter had already been placed. The knife was used to create a Pfannensteil skin incision that was carried down to the underlying layer of fascia. The fascia was nicked in the midline and this opening was extended laterally using Davis scissors. Omental adhesions along right fascia opening. Taken down in order to further dissect fascia from rectus muscles using scissors and bovie cautery. The rectus muscles were bluntly in the midline. The peritoneal cavity had already been entered into and this opening was stretched. The bladder blade was placed. The vesicouterine peritoneum was elevated and opened up into and the bladder flap was created digitally and bladder blade was replaced. The knife was used to create a hysterotomy and this opening was stretched. The operators hand was placed through the hysterotomy and the bladder blade was removed. The head was elevated and flexed and with fundal pressure the head was notably floating. For that reason the hysterotomy was extended with bandage scissors on each side and a vacuum was applied to the cephalic. With additional fundus pressure the cephalic was delivered. The shoulders and body were rapidly delivered. The cord was clamped and cut and the 's mouth and nares were bulb suction. The was handed off to the awaiting pediatricians. Cord blood was obtained. The placenta was manually expressed. The uterus was exteriorized and cleared of all clots and debris. Dilute IV Pitocin was begun. The uterine tone was improving but became boggy at times and so IM methergine given into the uterus directly. The hysterotomy was closed in a running interlocking fashion using 0 Vicryl followed by a second imbricating layer of 0 Vicryl. Interrupted sutures of 2-0 vicryl placed for excellent hemostasis. The hysterotomy was hemostatic. The pelvis was suctioned of any blood/fluid. The uterus was returned to the abdomen. The gutters were cleared of all clots and debris. The hysterotomy was reinspected and noted to be hemostatic. The fascia was then closed in running fashion using 0 Vicryl. The subcutaneous fat was copiously irrigated and reapproximated using 2-0 chromic. The skin was closed in a subcuticular fashion using 4-0 monocryl. At this point the procedure was terminated. The patient was transferred to the recovery room in stable condition. All sponge, lap and needle counts are correct x2. I attest to the content of the Intraoperative Record and any orders documented therein. Any exceptions are noted below. OB Procedure Charges 95808
--- NOTE | 2022-09-09 09:09 | Anesthesiology Progress Note ---
Date of Service September 09, 2022 Anesthesia Post Procedure Vital Signs Vital Signs: Temp Pulse Resp BP Pulse Ox O2 Del Method 09/09/22 05:51 36.5 C 18 Room Air 09/09/22 09:05 77 98 09/09/22 09:00 77 97 09/09/22 08:59 80 132/65 09/09/22 05:44 18 09/09/22 05:44 36.5 C 82 18 108/65 Transfer of Care Handoff Completed per policy Notes Mental Status: alert / awake / arousable and participated in evaluation Patient Amnestic to Procedure: Yes Nausea / Vomiting: adequately controlled Pain: adequately controlled Airway Patency, RR, SpO2: stable & adequate BP & HR: stable & adequate Hydration State: stable & adequate Neuraxial Anesthesia: was administered and sensory block is resolving Anesthetic Complications: no major complications apparent and Pt Satisfied with anesthetic care
[2022-09-09] MEDS ORDERED: SENNA 8.6 MG TAB PO PRN (09:39)
[2022-09-09] MEDS ORDERED: BENZOCAINE 20% AER SPR 82.5 GM CAN EXT PRN (09:39)
[2022-09-09] MEDS ORDERED: MAGNESIUM HYDROXIDE SUSP 30 ML UDC PO PRN (09:39)
[2022-09-09] MEDS ORDERED: DIPHTHERIA/TETANUS/PERTUSSIS 0.5 ML SYR/VIAL IM ONE (09:39)
[2022-09-09] MEDS ORDERED: HYDROCORTISONE ACETATE 25 MG SUPP PR PRN (09:39)
[2022-09-09] MEDS: OXYTOCIN 20 UNITS in LACTATED RINGER'S 1,000 ML IV SCH ×2 (09:52→19:02)
[2022-09-09] MEDS: ESCITALOPRAM OXALATE 10 MG TAB PO SCH (11:33)
[2022-09-09] MEDS ORDERED: MEASLES, MUMPS & RUBELLA VIRUS VIAL SQ ONE (14:15)
[2022-09-09] MEDS: SIMETHICONE 80 MG CHEW PO SCH ×3 (15:02→23:42)
[2022-09-09] MEDS ORDERED: NON-FORMULARY MEDICATION (Prenat.Vits,Cal,Min-Iron-Folic tablet) PO SCH (21:00)
[2022-09-09] MEDS: DOCUSATE SODIUM 100 MG CAP PO SCH (23:42)
[2022-09-10] MEDS ORDERED: ONDANSETRON INJ 2 MG/ML 2 ML VIAL IV PRN (01:06)
[2022-09-10] MEDS ORDERED: diphenhydrAMINE 50 MG/ML VIAL IV PRN (01:06)
[2022-09-10] MEDS ORDERED: oxyCODONE/ACETAMINOPHEN 5mg/325mg TAB PO PRN (01:06)
[2022-09-10] MEDS ORDERED: PROMETHAZINE HCL 25 MG in SODIUM CHLORIDE 0.9% 50 ML IV PRN (01:06)
[2022-09-10] MEDS ORDERED: diphenhydrAMINE Capsule 25 MG CAP PO PRN (01:06)
[2022-09-10 07:19] LABS: Basophils # (auto) 0.03 K/uL (0-0.2); Basophils % (auto) 0.3 %; Eosinophils # (auto) 0.13 K/uL (0-0.50); Eosinophils % (auto) 1.3 %; Hematocrit (blood only) 29.7 % (34.1-44.9); Hemoglobin 10.1 g/dl (12.0-16.0); Immature Granulocytes # (auto) 0.05 K/uL (0.00-0.02); Immature Granulocytes % (auto) 0.5 %; Lymphocytes # (auto) 1.45 K/uL (1.2-3.4); Lymphocytes % (auto) 14.5 %; Mean Corpuscular Volume 85.3 fL (80.0-100.0); Mean Platelet Volume 10.7 fL (9.4-12.3); Monocytes # (auto) 0.53 K/uL (0.24-0.82); Monocytes % (auto) 5.3 %; Neutrophils # (auto) 7.83 K/uL (1.4-6.5); Neutrophils % (auto) 78.1 %; Platelet Count 164 K/uL (130-400); RDW Coefficient of Variation 15.5 % (11.5-14.5); RDW Standard Deviation 47.8 fL (36.4-46.3); Red Blood Count 3.48 M/uL (3.93-5.22); White Blood Count 10.02 K/ul (4.8-10.8)
--- NOTE | 2022-09-10 07:19 | Obstetrical Progress Note ---
Date of Service <Jalen Becerra DO - Last Filed: 09/10/22 07:21> September 10, 2022 Assessment & Plan <Jalen Becerra DO - Last Filed: 09/10/22 07:21> (1) S/P section: - Feels well today. Eating well, voiding well, ambulating well. - Pain well controlled with ibuprofen - Routine care -- OOB, ambulation, diet progression as tolerated - After discharge will have 6 week follow-up with Dr. Burgos. Day #:: 1 <Caren Burgos MD, FACOG - Last Filed: 09/10/22 07:50> (1) S/P section: Subjective <Jalen Becerra DO - Last Filed: 09/10/22 07:21> Ambulation: ambulating normally Voiding: no voiding problems Passing Gas:: Yes Diet Tolerance:: regular diet Lochia:: Small Feeding Type:: breast feeding Current Pain Level(1-10): 2 Review of Systems Denies fever, chills, sweats Denies shortness of breath, difficulty breathing, chest pain, palpitations, chest pressure. Denies breast pain. Denies dysuria. Denies headache or changes in vision. Physical Exam <Jalen Becerra DO - Last Filed: 09/10/22 07:21> General: Alert, oriented. No acute distress. Cardiac: Regular rate and rhythm, no murmurs/rubs/gallops. Respiratory: Clear to auscultation bilaterally a/p, no wheezes/rales/rhonchi. No increased work of breathing. Symmetrical chest rise. No respiratory distress. Abdomen: Soft, nontender, nondistended. Bowel sounds present. Uterus: Uterine fundus firm, palpable 1 cm below umbilicus. Lower Extremities: No lower extremity edema or swelling. No deep calf pain. Lucie's negative bilaterally. Results & Data ([facility]) <Jalen Becerra DO - Last Filed: 09/10/22 07:21> Vital Signs (Past 12 Hours) Vital Signs Temp Pulse Resp BP Pulse Ox O2 Del Method 09/10/22 05:00 36.8 C 82 18 93/58 L 95 Room Air 09/10/22 01:00 18 96 09/09/22 23:00 18 95 09/09/22 23:35 36.7 C 78 18 95/66 L Room Air 09/10/22 00:00 18 93 09/09/22 22:00 18 94 09/09/22 20:30 36.9 C 18 100/65 98 Room Air 09/09/22 21:00 18 98 09/09/22 20:00 18 97 <Caren Burgos MD, FACOG - Last Filed: 09/10/22 07:50> Co-Signing Physician Notes Resident Physician Supervision Note: I interviewed and examined the patient. Discussed with Dr. Becerra and agree with findings and plan as documented in the note. Any exceptions or clarifications are listed here: stable, doing well. eating, no n/v.cp/sob. no pain issues. voiding. abd soft ff 2 down nt. incision c/d/i. ext nt calves. pod#1 s/p c/s doing well , routine care. breast feeding. rh neg, baby rh neg, mmr ordered. Documented By: Caren Burgos MD, FACOG Resident Activity Tracking <Jalen Becerra DO - Last Filed: 09/10/22 07:21> Resident Involvement: Resident Care Provided Care Provided: OB Delivery
[2022-09-10] MEDS: ESCITALOPRAM OXALATE 10 MG TAB PO SCH (08:17)
[2022-09-10] MEDS: FERROUS SULFATE 325 MG TAB PO SCH (08:17)
[2022-09-10] MEDS: PRENATAL VITAMIN 1 TAB PO SCH (08:17)
[2022-09-10] MEDS: DOCUSATE SODIUM 100 MG CAP PO SCH ×2 (08:17→20:44)
[2022-09-10] MEDS: SIMETHICONE 80 MG CHEW PO SCH ×4 (08:17→20:44)
[2022-09-10] MEDS: IBUPROFEN 600 MG TAB PO PRN ×2 (13:14→23:30)
[2022-09-10] MEDS ORDERED: bisacodyL 5 MG TABEC PO SCH (20:00)
[2022-09-11 06:02] LABS: Hematocrit (blood only) 28.7 % (34.1-44.9); Hemoglobin 9.5 g/dl (12.0-16.0)
--- NOTE | 2022-09-11 07:10 | Obstetrical Progress Note ---
Date of Service <Jalen Becerra DO - Last Filed: 09/11/22 07:10> September 11, 2022 Assessment & Plan <Jalen Becerra DO - Last Filed: 09/11/22 07:10> (1) S/P section: - Feels well today. Eating well, voiding well, ambulating well. - Pain well controlled with ibuprofen and Percocet. - Routine care -- OOB, ambulation, diet progression as tolerated - After discharge will have 6 week follow-up with Dr. Burgos. - Will D/C today. Day #:: 2 <Manda Paul MD - Last Filed: 09/11/22 07:12> (1) S/P section: Subjective <Jalen Becerra DO - Last Filed: 09/11/22 07:10> Ambulation: ambulating normally Voiding: no voiding problems Passing Gas:: Yes Diet Tolerance:: regular diet Lochia:: Small Feeding Type:: breast feeding Current Pain Level(1-10): 3 Review of Systems Denies fever, chills, sweats Denies shortness of breath, difficulty breathing, chest pain, palpitations, chest pressure. Denies breast pain. Denies dysuria. Denies headache or changes in vision. Physical Exam <Jalen Becerra DO - Last Filed: 09/11/22 07:10> General: Alert, oriented. No acute distress. Cardiac: Regular rate and rhythm, no murmurs/rubs/gallops. Respiratory: Clear to auscultation bilaterally a/p, no wheezes/rales/rhonchi. No increased work of breathing. Symmetrical chest rise. No respiratory distress. Abdomen: Soft, nontender, nondistended. Bowel sounds present. Uterus: Uterine fundus firm, palpable 2 cm below umbilicus. Lower Extremities: No lower extremity edema or swelling. No deep calf pain. Lucie's negative bilaterally. Results & Data ([facility]) <Jalen Becerra DO - Last Filed: 09/11/22 07:10> Vital Signs (Past 12 Hours) Vital Signs Temp Pulse Resp BP Pulse Ox O2 Del Method 09/10/22 23:30 36.7 C 76 18 105/69 96 Room Air 09/10/22 19:50 36.7 C 90 18 101/66 97 Room Air <Manda Paul MD - Last Filed: 09/11/22 07:12> Co-Signing Physician Notes Resident Physician Supervision Note: I interviewed and examined the patient. Discussed with Dr. Becerra and agree with findings and plan as documented in the note. Any exceptions or clarifications are listed here: [ ] Documented By: Manda Paul MD, FACOG Resident Activity Tracking <Jalen Becerra, - Last Filed: 09/11/22 07:10> Resident Involvement: Resident Care Provided Care Provided: OB Delivery
[2022-09-11] MEDS: ESCITALOPRAM OXALATE 10 MG TAB PO SCH (08:12)
[2022-09-11] MEDS: SIMETHICONE 80 MG CHEW PO SCH (08:12)
[2022-09-11] MEDS: IBUPROFEN 600 MG TAB PO PRN (08:12)
[2022-09-11] MEDS: FERROUS SULFATE 325 MG TAB PO SCH (08:12)
[2022-09-11] MEDS: PRENATAL VITAMIN 1 TAB PO SCH (08:12)
[2022-09-11] MEDS: DOCUSATE SODIUM 100 MG CAP PO SCH (08:12)
[2022-09-11] MEDS ORDERED: bisacodyL 10 MG SUPP PR PRN (09:03)
--- NOTE | 2022-09-14 13:40 | Discharge Summary ---
Date of Service September 14, 2022 Admission HPI Per Admitting Provider 37yo at 39+wks ega on day of her admission for planned section with history of prior section and desires repeat section. Patient has denied leaking, bleeding or contractions. Good movement. Declines tubal. PNC c/b 1. Prior c/s 2. GDM on insulin, takes bedtime nph, has instructions from Endo re: dosing night prior to surgery 3. RH neg, had rhogam, eval pp 4. AMA 5. Obesity 6. Needs MMR pp 7. History of pp anxiety, plans lexapro pp via PCP PNL rh neg, ri, gbs neg OBH: c/s x 1 GYNH: nl paps, no stds Discharge Data Consultations 09/09/22 05:29 Consult Anesthesiology Stat Procedures Performed Operation Date: 09/09/22 07:30 Actual Procedures Repeat Low Transverse Section (Delivery of Baby Through Abdominal Incision) - Caren Burgos MD, [facility] [place] [facility] Course (1) 39 weeks gestation of : (2) Insulin controlled gestational diabetes mellitus (GDM) during : (3) Previous delivery affecting , antepartum: Plan The patient underwent the above stated procedure without incident and her postoperative course and recovery was uncomplicated. On her postoperative day #2 she was tolerating a regular diet, voiding spontaneously, ambulating without problem and was using oral meds for adequate pain control. Her postoperative hemoglobin was 9.5. She was given written and verbal discharge instructions and told to followup in office at 6wks. She was given appropriate pain medicine prescriptions. Coding Level of Care Code None Diagnoses 39 weeks gestation of Z3A.39 Insulin controlled gestational diabetes mellitus (GDM) during O24.414 Previous delivery affecting , antepartum O34.219
== END 2022-09-11 12:30 | disposition home or self-care (01) | DRG 788 ==
LOC: 4S1 05:27 → EDSTATUS 07:30 → 4E2 12:27

== ENCOUNTER 2024-12-27 05:32 | Inpatient (IN) ==
--- NOTE | 2024-12-15 12:42 | Anesthesiology Consultation ---
Date of Service December 15, 2024 Assessment & Plan (1) Encounter for pre-operative examination: - Per inspector radar and electronics on 12/15/24: No known infectious disease contacts, current infectious disease symptoms in past 10 days or COVID positive test result in the past 30 days. Chart Review Chart Review: entry level sales associate initiated History Surgery Operation Date: 12/27/24 07:30 Proposed Procedures p Section (Delivery of Baby Through Abdominal Incision), - Sonia Reyes DO s With Bilateral Tubal Ligation - Sonia Reyes DO Height/Weight Height: 5 ft 6 in Weight: 121.109 kg Allergies Allergy/AdvReac Type Severity Reaction Status Date / Time No Known Allergies Allergy Verified 12/15/24 11:59 Medications Home Medications Medication Instructions Recorded Confirmed Last Taken prenat.vits,latanya,abd-khkc-uvhrt 1 tab PO DAILY 05/06/24 12/15/24 Unknown acetone (urine) test (Ketostix #100 ea 05/19/24 12/09/24 Unknown strips) blood sugar diagnostic (OneTouch #400 ea 05/19/24 12/09/24 Unknown Verio test strips) lancets 30 gauge (OneTouch Delica #400 ea 05/19/24 12/09/24 Unknown Plus Lancet) pen needle, diabetic 32 gauge x #100 ea 05/27/24 12/09/24 Unknown 5/32" (BD Ultra-Fine Danna Pen Needle) blood-glucose sensor (Dexcom G7 #3 ea 06/11/24 12/09/24 Unknown Sensor device) albuterol sulfate 90 mcg/actuation 2 puff inhalation Q6H PRN prn 11/16/24 12/15/24 Unknown aerosol inhaler escitalopram oxalate 10 mg tablet 5 mg PO QAM 12/15/24 12/15/24 Unknown insulin NPH isoph U-100 human 100 45 unit subcut QPM 12/15/24 12/15/24 Unknown unit/mL (3 mL) subcutaneous pen (Novolin N FlexPen) Past Medical History Medical History (Updated 12/15/24 @ 12:41 by Twila Aguirre PA-C) Anxiety BMI 40.0-44.9, adult Diabetes mellitus, type 2 Fatty liver Polycystic ovarian syndrome Vitamin D deficiency Past Family History Family History Mother History of pancreatic cancer Hypertension Grandfather Myocardial infarction Father Bipolar 1 disorder Other No family history of adverse response to anesthesia Denies family history of Ovarian cancer Prostate cancer Breast cancer Colorectal cancer Past Surgical History Surgical History (Updated 12/15/24 @ 12:41 by Twila Aguirre PA-C) H/O section (02/2020) failure to progress, distress S/P section x 2 Social History Smoking Status: Never smoker Do You Dip or Chew Tobacco: No Hx Alcohol Use: No Hx Substance Use: No substance use type: does not use Lab Results Anesthesia Preop Results Results Anesthesia Widget: HA1c 5.8 % (4.5-5.6) H 11/18/24 Testing Echocardiogram Date: 04/27/24 EF 60-65% No regional wall motion abnormalities No significant valvular abnormalities
--- NOTE | 2024-12-24 17:07 | History & Physical Report ---
Date of Service December 24, 2024 Assessment & Plan (1) Diabetes mellitus affecting : Plan: Will plan for repeat section, tubal sterilization. Reviewed consent in office. Questions answered. History of Present Illness Chief Complaint: repeat section Primary Care Provider: Rona Hernandez MD 39yo with [facility] 12/31/24 for repeat and tubal sterilization. and Delivery Plans E. coli UTI dx 10/18 - treatment x 1 week. Repeat urine at next visit GDM on insulin (started insulin 06/06/24) *Wkly NSTs @32wks and Twice wkly @36wks *Serial growth US @24wks *Deliver by [facility] Need for Rhogam due to RH Negative Mother Rhogam given 10/14/24 Previous Section x2 affecting Schedule Rpt at 28wk C/S WITH TUBAL SCHEDULED FOR 12/27/[address] CHOUDHURY AND DR[address] DELUCA ASSIST AMA *Weekly NST's @ 36wks. Obesity (BMI 40 and higher @ beginning of ) *Growth US @ 32wks *Weekly NSTs @ 34wks *BMI 40 or greater offer detailed/level II anatomy at [facility] *BMI 40 or above offer delivery by [facility]. Placenta Previa *MFM consult (09/22/24 @ [facility]) MRI- RESOLVED MFM Consult 09/22/2024 Growth US @ 28 weeks - every 4 weeks NST 2x/wk @32 weeks Deliver by 39 weeks May transfer to [facility] in 3rd trimester for delivery Allergies Allergy/AdvReac Type Severity Reaction Status Date / Time No Known Allergies Allergy Verified 12/24/24 08:34 Home Medications Medication Instructions Recorded Confirmed Type prenat.vits,latanya,[id number] 1 tab PO DAILY 05/06/24 12/24/24 History acetone (urine) test (Ketostix #100 ea 05/19/24 12/24/24 Rx strips) blood sugar diagnostic (OneTouch #400 ea 05/19/24 12/24/24 Rx Verio test strips) lancets 30 gauge (OneTouch Delica #400 ea 05/19/24 12/24/24 Rx Plus Lancet) pen needle, diabetic 32 gauge x #100 ea 05/27/24 12/24/24 Rx 5/32" (BD Ultra-Fine Danna Pen Needle) blood-glucose sensor (Dexcom G7 #3 ea 06/11/24 12/24/24 Rx Sensor device) albuterol sulfate 90 mcg/actuation 2 puff inhalation Q6H PRN prn 11/16/24 12/24/24 History aerosol inhaler escitalopram oxalate 10 mg tablet 5 mg PO QAM 12/15/24 12/24/24 History insulin NPH isoph U-100 human 100 45 unit subcut QPM 12/15/24 12/24/24 History unit/mL (3 mL) subcutaneous pen (Novolin N FlexPen) breast pump #1 ea 12/16/24 12/24/24 Rx Patient History Medical History Anxiety BMI 40.0-44.9, adult Diabetes mellitus, type 2 Fatty liver Polycystic ovarian syndrome Vitamin D deficiency Surgical History H/O section (02/2020) failure to progress, distress S/P section x 2 Family History Mother History of pancreatic cancer Hypertension Grandfather Myocardial infarction Father Bipolar 1 disorder Other No family history of adverse response to anesthesia Denies family history of Ovarian cancer Prostate cancer Breast cancer Colorectal cancer Social History Smoking Status: Never smoker Second Hand Exposure: No; Do You Dip or Chew Tobacco: No; Hx Alcohol Use: No Hx Substance Use: No Preferred Language: Georgian Communication Ability: Effective Visual Impairment: No Limitations Hearing Ability: Normal Heatset Winder Operator Required: No Beliefs That Will Affect Care: None marital status: marital status details: Binh Vogel (36) [phone] Current Living Situation: Spouse Current Living Situation Comment: lives with and 2 sons, no pets. current occupational status: employed current occupation: [employer] Feels Safe at Home: Yes Childhood Exposure to Second-Hand Smoke: No Diet: regular caffeine: Yes Dental Care, Regularly: Yes Physical Activity Frequency: 1-2 Times per Week Seatbelt Use: always Sunscreen Use: Yes Gender Identity: Female Assistive Devices: Contacts Review of Systems All systems reviewed & are unremarkable except as noted in HPI & below Physical Exam Constitutional: WD/WN, vitals as above Respiratory: normal respiratory effort, lungs clear to auscultation no respiratory distress Cardiovascular: Rate/Rhythm: regular rate and regular rhythm Gastrointestinal (Abdomen): Inspection/Auscultation: abdomen normal to inspection Percussion/Palpation: abdomen soft; abdomen nontender Gravid. No s/s chorio or abruption. Skin: no rashes, warm and dry Psychiatric: A+Ox3, euthymic affect Coding Level of Care Code None Diagnoses Diabetes mellitus affecting O24.919
[2024-12-27] MEDS ORDERED: SODIUM CHLORIDE 0.9% 100 ML IV PRN (05:41)
[2024-12-27] MEDS: LACTATED RINGER'S 1,000 ML IV SCH (06:02)
[2024-12-27] MEDS: ACETAMINOPHEN 500 MG TAB PO SCH (06:07)
[2024-12-27 06:11] LABS: Basophils # (auto) 0.04 K/uL (0.00-0.20); Basophils % (auto) 0.4 %; Eosinophils # (auto) 0.11 K/uL (0.00-0.50); Eosinophils % (auto) 1.2 %; Hematocrit (blood only) 37.3 % (37.0-47.0); Hemoglobin 12.5 g/dl (12.0-16.0); Immature Granulocytes # (auto) 0.04 K/uL (0.01-0.20); Immature Granulocytes % (auto) 0.4 %; Lymphocytes # (auto) 2.57 K/uL (1.20-3.40); Lymphocytes % (auto) 27.4 %; Mean Corpuscular Hemoglobin 28.5 pg (25.0-34.0); Mean Corpuscular Hgb Conc 33.5 g/dL (32.0-36.0); Mean Platelet Volume 10.9 fL (9.4-12.4); Monocytes # (auto) 0.62 K/uL (0.11-0.59); Monocytes % (auto) 6.6 %; Neutrophils # (auto) 5.99 K/uL (1.40-6.50); Platelet Count 215 K/uL (130-400); RDW Standard Deviation 46.4 fL (36.4-46.3); Red Blood Count 4.39 M/uL (4.20-5.40); White Blood Count 9.37 K/ul (4.8-10.8)
[2024-12-27] MEDS ORDERED: LACTATED RINGER'S 1,000 ML IV SCH ×2 (06:45→09:19)
--- NOTE | 2024-12-27 07:23 | History & Physical Bridge Note ---
Date of Service December 27, 2024 History & Physical Bridge Note I have examined the patient, reviewed the History & Physical and in the interval since the performance of the History & Physical I have noted the following changes of clinical significance: no changes noted
[2024-12-27] MEDS ORDERED: ePHEDrine sulfate 50 MG/ML AMP IV PRN (07:27)
[2024-12-27] MEDS ORDERED: NALOXONE HCL 0.4 MG/1 ML VIAL/CARP IV PRN (07:27)
[2024-12-27] MEDS ORDERED: ONDANSETRON INJ 2 MG/ML 2 ML VIAL IV PRN (07:27)
[2024-12-27] MEDS ORDERED: NALBUPHINE HCL INJ 10 MG/ML AMP IV PRN (07:27)
[2024-12-27] MEDS ORDERED: HYDROmorphone INJ 0.5 MG/0.5 ML SYR IV PRN (07:27)
[2024-12-27] MEDS ORDERED: NALOXONE HCL 1 MG in SODIUM CHLORIDE 0.9% 1,000 ML IV PRN (07:27)
[2024-12-27] MEDS ORDERED: MEPERIDINE HCL 25 MG/ML CARP/VIAL IV PRN (07:27)
[2024-12-27] MEDS ORDERED: MoRPHine SULFATE 2 MG/ML CARP IV PRN (07:27)
[2024-12-27] MEDS ORDERED: oxyCODONE HCL IR 5 MG TAB (IMMEDIATE RELEASE) PO PRN (07:27)
[2024-12-27] MEDS ORDERED: PROMETHAZINE 6.25 MG/50.25 ML BAG IV PRN (07:27)
[2024-12-27] MEDS ORDERED: diphenhydrAMINE 50 MG/ML VIAL IV PRN (07:27)
[2024-12-27] MEDS ORDERED: NALOXONE HCL 0.08 MG in SYRINGE 1.8 ML IV PRN (07:27)
[2024-12-27] MEDS ORDERED: NO NARCOTICS OR SEDATIVES SCH (07:30)
[2024-12-27] MEDS ORDERED: DC INTRASPINAL MORPHINE SCH (07:30)
[2024-12-27] MEDS ORDERED: OXYTOCIN 10 UNITS/ML VIAL ONE (07:32)
[2024-12-27] MEDS ORDERED: MoRPHine SULFATE PF 1 MG/ML 10 ML AMP/VIAL ONE (07:32)
[2024-12-27] MEDS ORDERED: ONDANSETRON INJ 2 MG/ML 2 ML VIAL ONE (07:32)
[2024-12-27] MEDS: ceFAZolin 3000MG 3,000 MG/72.5 ML BAG IV SCH (07:51)
[2024-12-27] MEDS ORDERED: PHENYLEPHRINE 100MCG/ML 5ML SYR ONE (08:35)
[2024-12-27 08:59] LABS: Base Excess Cord Venous Blood 0.3 mEq/L (-7.7-1.9); Cord Venous Blood HCO3 27 mmol/L (18.4-26.8); Cord Venous Blood PCO2 48 mmHg (30.4-57.2); Cord Venous Blood PO2 32 mmHg (14.1-43.3); Cord Venous Blood pH 7.35 (7.20-7.44); O2 Saturation Cord Venous Bld < 60.0 % (<68)
[2024-12-27 09:00] LABS: Base Excess Cord Arterial Bld -1.4 mEq/L (-9-1.8); CO2 Cord Arterial Blood 58 mmHg (39.1-73.5); HCO3 Cord Arterial Blood 27 mmol/L (19.7-28.5); Oxygen Sat Cord Arterial Blood < 60.0 % (<60); PO2 Cord Arterial Blood < 20 mmHg (4.1-31.7); pH Cord Arterial Blood 7.27 (7.1-7.38)
--- NOTE | 2024-12-27 09:15 | Operative Report ---
Post Operative Report Pre & Post Diagnosis Operation Date: 12/27/24 07:30 Pre-Op Diagnosis: Repeat section with bilateral tubal ligation sterilization Post-Op Diagnosis: Repeat Section of a viable baby girl at [address] Reyes, with bilateral tubal ligation sterilization performed. I identified the patient and participated in the time-out.: Yes Procedure Operation Date: 12/27/24 07:30 Actual Procedures p Repeat Section with bilateral Tubal Ligation(Bilateral) - Sonia Reyes DO Surgeon Sonia Reyes DO Station Superintendent Vu Paul MD Quantitative Blood Loss (QBL) pending,see nursing notes Findings Consistent with Post-Op Diagnosis Normal appearing uterus, fallopian tubes, ovaries. Adhesive disease omentum to anterior abdominal wall. Viable female , Apgars 9/9. Weight pending, please see nursing notes. Specimens placenta, cord blood, cord gas Drains chopra clear yellow Anesthesia Type Spinal Complications none Disposition Accompanied Patient To Recovery: Yes Indications 39yo @ 39 3/, history of x 2, desire for permanent sterilization. Description of Procedure The patient was seen in her labor and delivery room, risks benefits and alternatives to surgery were reviewed. Informed consent obtained. Questions were answered. She was taken to the operating room, spinal anesthesia was administered. She was then prepared and draped in the usual sterile fashion in the supine position with a leftward tilt. Timeout was confirmed. A Pfannenstiel skin incision was made with a scalpel, and carried through to the underlying layer of fascia. Fascia was nicked at midline, and this incision was extended bilaterally. The superior aspect of the fascial incision was grasped with Luz clamps x2, elevated off the underlying rectus abdominis muscles, and dissected sharply and bluntly. In similar fashion, the inferior aspect of the fascial incision was dissected. The rectus abdominis muscles were , and the peritoneum was entered bluntly digitally. This was extended bilaterally. The bladder flap was taken down carefully using Metzenbaum scissors. Using a new scalpel, a low transverse uterine incision was created. Clear amniotic fluid noted. The was delivered from a cephalic presentation. The head delivered, followed by shoulders and body. Spontaneous cry on the field. The cord was doubly clamped and cut, and the infant was handed off to the waiting welding machine operator arc. A segment was retained for cord gases. Cord blood was obtained. The placenta was delivered spontaneously intact. The uterus was exteriorized, and cleared of all clots and debris. The hysterotomy incision was reapproximated using 0 Vicryl in a running locked stitch. A second layer of the same suture was used to imbricate the incision. Posterior uterus was evaluated and normal. Tubal sterilization performed - bilateral tubes were identified to the fimbria, transected with handheld Ligasure device. These were handed off to be sent to path. Excellent hemostasis. The uterus was returned to the abdomen, and gutters were cleared of clots and debris. Excellent hemostasis was observed. The fascial incision was reapproximated using 0 Vicryl in a running stitch. The subcutaneous tissue was irrigated, and reapproximated using 2-0 plain gut in a running stitch. The skin was reapproximated using 4-0 Vicryl in a running subcuticular stitch. FLACO dressing applied. The patient tolerated the procedure well, and will be taken to the recovery area in stable and good condition. I attest to the content of the Intraoperative Record and any orders documented therein. Any exceptions are noted below. OB Procedure Charges [id number] Add on Tubal for C/S
[2024-12-27] MEDS ORDERED: MAGNESIUM HYDROXIDE SUSP 30 ML UDC PO PRN (09:19)
[2024-12-27] MEDS ORDERED: HYDROCORTISONE ACETATE 25 MG SUPP PR PRN (09:19)
[2024-12-27] MEDS ORDERED: ALBUTEROL HFA 8 GM INHALER INH PRN (09:19)
[2024-12-27] MEDS ORDERED: SENNA 8.6 MG TAB PO PRN (09:19)
[2024-12-27] MEDS ORDERED: CALCIUM CARBONATE 500 MG CHEWABLE TAB PO PRN (09:19)
[2024-12-27] MEDS ORDERED: BENZOCAINE 20% SPRY 85 APPLN/85 GM CAN EXT PRN (09:19)
[2024-12-27] MEDS: CITRIC ACID/SODIUM CITRATE 15 ML UDC PO SCH (09:58)
[2024-12-27] MEDS: KETOROLAC 30 MG/ML VIAL IV SCH (10:04)
[2024-12-27] MEDS: DIPHTHER/TETAN/PERTUS Vaccine (Tdap, Adol/Adult) 0.5mL IM ONE (10:12)
--- NOTE | 2024-12-27 12:09 | Communication Note ---
Date of Service: December 27, 2024 spoke to endo nurse Isaura Jolley about this pt, her dx and mgmt pp. Patient overall has not exhibited compliance with endo recs. She apparently had early dx of DM due to elevated A1C and was going to start metformin but with preg, insulin was started. Regimen has been 45u nph at bedtime and endo nurse notes bsgs have not been terrible. Therefore, they recommend either no insulin this pm or at most 10units and do fastings and before meals. Patient to communicate her values via the portal to Isaura Jolley in one wk and they will help ensure good followup. Will share this with delivering provider to communicate to pt.
[2024-12-27] MEDS: SIMETHICONE 80 MG CHEW PO SCH (13:47)
[2024-12-27] MEDS: ACETAMINOPHEN 325 MG TAB PO SCH (15:18)
--- NOTE | 2024-12-27 15:18 | Anesthesiology Progress Note ---
Date of Service December 27, 2024 Anesthesia Post Procedure Vital Signs Vital Signs: Temp Pulse Pulse Resp BP BP Pulse Ox 12/27/24 14:00 20 97 12/27/24 12:58 18 94 12/27/24 12:40 36.3 C L 68 22 133/85 94 12/27/24 12:00 22 94 12/27/24 11:24 59 L 96 12/27/24 11:19 54 L 95 12/27/24 11:18 36.4 C L 20 12/27/24 11:18 54 L 120/73 12/27/24 11:14 61 95 12/27/24 11:09 65 97 12/27/24 11:04 57 L 96 12/27/24 10:59 57 L 97 12/27/24 10:54 59 L 96 12/27/24 10:49 61 93 12/27/24 10:48 20 12/27/24 10:48 51 L 116/65 12/27/24 10:44 53 L 95 12/27/24 10:39 55 L 96 12/27/24 10:34 60 97 12/27/24 10:29 75 96 12/27/24 10:24 70 97 12/27/24 10:19 64 96 12/27/24 10:18 18 12/27/24 10:18 62 106/64 12/27/24 10:14 69 98 12/27/24 10:09 62 97 12/27/24 10:08 20 12/27/24 10:08 60 102/59 L 12/27/24 10:04 60 97 12/27/24 09:59 71 99 12/27/24 09:58 20 12/27/24 09:58 56 L 97/58 L 12/27/24 09:54 65 96 12/27/24 09:49 61 97 12/27/24 09:48 18 12/27/24 09:48 57 L 91/59 L 12/27/24 09:44 65 96 12/27/24 09:40 63 100/53 L 12/27/24 09:39 76 90 12/27/24 09:38 18 12/27/24 09:34 65 96 12/27/24 09:29 64 96 12/27/24 09:28 20 12/27/24 09:28 67 95/55 L 12/27/24 09:24 58 L 96 12/27/24 09:18 54 L 94 12/27/24 09:17 55 L 94 12/27/24 09:16 36.4 C L 20 12/27/24 09:16 55 L 97/53 L 12/27/24 07:50 20 12/27/24 07:50 20 12/27/24 07:16 68 143/87 H 12/27/24 07:09 20 12/27/24 07:09 36.4 C L 20 12/27/24 05:49 36.5 C 22 12/27/24 05:45 76 132/69 O2 Del Method 12/27/24 14:00 12/27/24 12:58 12/27/24 12:40 Room Air 12/27/24 12:00 12/27/24 11:24 12/27/24 11:19 12/27/24 11:18 12/27/24 11:18 12/27/24 11:14 12/27/24 11:09 12/27/24 11:04 12/27/24 10:59 12/27/24 10:54 12/27/24 10:49 12/27/24 10:48 12/27/24 10:48 12/27/24 10:44 12/27/24 10:39 12/27/24 10:34 12/27/24 10:29 12/27/24 10:24 12/27/24 10:19 12/27/24 10:18 12/27/24 10:18 12/27/24 10:14 12/27/24 10:09 12/27/24 10:08 12/27/24 10:08 12/27/24 10:04 12/27/24 09:59 12/27/24 09:58 12/27/24 09:58 12/27/24 09:54 12/27/24 09:49 12/27/24 09:48 12/27/24 09:48 12/27/24 09:44 12/27/24 09:40 12/27/24 09:39 12/27/24 09:38 12/27/24 09:34 12/27/24 09:29 12/27/24 09:28 12/27/24 09:28 12/27/24 09:24 12/27/24 09:18 12/27/24 09:17 12/27/24 09:16 12/27/24 09:16 12/27/24 07:50 12/27/24 07:50 12/27/24 07:16 12/27/24 07:09 12/27/24 07:09 12/27/24 05:49 12/27/24 05:45 Transfer of Care Handoff Completed per policy Notes Mental Status: alert / awake / arousable Nausea / Vomiting: adequately controlled Pain: adequately controlled Airway Patency, RR, SpO2: stable & adequate BP & HR: stable & adequate Hydration State: stable & adequate Neuraxial Anesthesia: was administered and sensory block is resolving Anesthetic Complications: no major complications apparent and Pt Satisfied with anesthetic care
[2024-12-27] MEDS: OXYTOCIN 20 UNITS/LR 1,002 ML IV SCH (16:45)
[2024-12-27] MEDS ORDERED: Nursing to Pharmacy Communication SCH (18:45)
[2024-12-27] MEDS ORDERED: NovoLIN-N (NPH) PER UNIT CHARGE SQ SCH (21:00)
[2024-12-27] MEDS ORDERED: INSULIN HUMAN NPH SC SCH (21:00)
[2024-12-27] MEDS: DOCUSATE SODIUM 100 MG CAP PO SCH (21:08)
[2024-12-27] MEDS: NovoLIN-N (NPH) PER UNIT CHARGE SQ SCH (21:22)
[2024-12-28] MEDS ORDERED: ONDANSETRON INJ 2 MG/ML 2 ML VIAL IV PRN (01:28)
[2024-12-28] MEDS ORDERED: diphenhydrAMINE Capsule 25 MG CAP PO PRN (01:28)
[2024-12-28] MEDS ORDERED: HYDROmorphone INJ 0.5 MG/0.5 ML SYR IV PRN (01:28)
[2024-12-28] MEDS ORDERED: diphenhydrAMINE 50 MG/ML VIAL IV PRN (01:28)
[2024-12-28] MEDS ORDERED: PROMETHAZINE 12.5 MG/50.5 ML BAG IV PRN (01:28)
[2024-12-28] MEDS: MoRPHine SULFATE PF 1 MG/ML 10 ML AMP/VIAL INT SPINAL ONE (03:19)
[2024-12-28 06:16] LABS: Basophils # (auto) 0.03 K/uL (0.00-0.20); Basophils % (auto) 0.3 %; Eosinophils # (auto) 0.15 K/uL (0.00-0.50); Eosinophils % (auto) 1.6 %; Hematocrit (blood only) 32.1 % (37.0-47.0); Hemoglobin 10.6 g/dl (12.0-16.0); Immature Granulocytes # (auto) 0.03 K/uL (0.01-0.20); Immature Granulocytes % (auto) 0.3 %; Lymphocytes # (auto) 1.98 K/uL (1.20-3.40); Lymphocytes % (auto) 21.7 %; Mean Corpuscular Hemoglobin 28.2 pg (25.0-34.0); Mean Corpuscular Volume 85.4 fL (80.0-100.0); Mean Platelet Volume 11.2 fL (9.4-12.4); Monocytes # (auto) 0.51 K/uL (0.11-0.59); Monocytes % (auto) 5.6 %; Neutrophils # (auto) 6.43 K/uL (1.40-6.50); Neutrophils % (auto) 70.5 %; Platelet Count 177 K/uL (130-400); RDW Standard Deviation 46.6 fL (36.4-46.3); Red Blood Count 3.76 M/uL (4.20-5.40); White Blood Count 9.13 K/ul (4.8-10.8)
--- NOTE | 2024-12-28 06:47 | Obstetrical Progress Note ---
Date of Service December 28, 2024 Assessment & Plan (1) delivery delivered: Plan 39 years delivered by [facility] at 39 week POG. #1POD following Delivery Both mom and baby doing well. Continue care as per protocol. Encouraged nursing with mother's milk. Encouraged ambulation. Encouraged deep breathing. Admission and Anticipated Discharge Date Admission Date: December 27, 2024 Supervising Physician Co-Signing Physician Notes Resident Physician Supervision Note: I interviewed and examined the patient. Discussed with Dr. Lugo and agree with findings and plan as documented in the note. Any exceptions or clarifications are listed here: POD1 doing well, continue routine care. Documented By: Sonia Reyes, DO Subjective 39 years with [facility] with b/l fallopian tube excision with at 39week POG. #1POD following delivery No active complains Both mom and baby doing well. Mom Lying comfortable on bed. Pain: Mild, intermittent, manageable on painkillers. Lochia: Moderate Diet: Regular OB diet Gas: Not aware of passing, but no abdominal distension Peeing: Passed Urine after chopra's removal Ambulation: to Bathroom/ Corridor without any complication Answered her queries. Review of Systems Review of Systems: As per HPI Physical Exam Physical Exam: General: Alert and oriented. No acute distress. CVS: S1 S2+ No murmurs, regular rhythm. Respiratory: CTA bilaterally. No rhonchi, wheezes, or crackles. No increased work of breathing. Abdomen: Bowel sound +. Soft, nontender Uterus: Fundus firm and palpable few cm below the umbilicus. Incision site looks healthy: Dry, No swelling, Erythema Lower extremities: No LE edema. No deep calf pain. Results & Data Vital Signs (Past 12 Hours) Vital Signs Temp Pulse Resp BP Pulse Ox O2 Del Method 12/28/24 05:30 18 98 12/28/24 04:00 36.7 C 68 18 110/71 97 Room Air 12/28/24 04:00 18 97 12/28/24 00:00 18 98 12/28/24 00:00 36.6 C 67 18 103/70 99 Room Air 12/27/24 22:25 20 98 12/27/24 21:35 20 98 12/27/24 21:35 36.5 C 58 L 20 114/78 98 Room Air 12/27/24 20:25 20 98 12/27/24 19:25 20 98 Resident Activity Tracking Resident Involvement: Resident Care Provided Care Provided: OB Delivery
[2024-12-28] MEDS ORDERED: KETOROLAC 30 MG/ML VIAL IV PRN (09:05)
[2024-12-28] MEDS: FERROUS SULFATE 325 MG TAB PO SCH (09:49)
[2024-12-28] MEDS: PRENATAL VITAMIN 1 TAB PO SCH (09:50)
[2024-12-28] MEDS: IBUPROFEN 600 MG TAB PO SCH (09:50)
[2024-12-28] MEDS: ESCITALOPRAM OXALATE 10 MG TAB PO SCH (09:51)
[2024-12-28] MEDS: bisacodyL 5 MG TABEC PO SCH (20:56)
[2024-12-28] MEDS: MEASLES, MUMPS & RUBELLA VIRUS VACCINE (MMR) 0.5ML VIAL SQ ONE (20:58)
[2024-12-29] MEDS: oxyCODONE HCL IR 5 MG TAB (IMMEDIATE RELEASE) PO PRN (00:39)
[2024-12-29 01:35] VITALS: RESP 18
[2024-12-29 06:31] LABS: Hematocrit (blood only) 32.1 % (37.0-47.0); Hemoglobin 10.7 g/dl (12.0-16.0)
--- NOTE | 2024-12-29 07:36 | Obstetrical Progress Note ---
Date of Service December 29, 2024 Assessment & Plan (1) delivery delivered: Plan 39 years delivered by [facility] at 39 week POG. #2 POD following Delivery Both mom and baby doing well. Discharge home today. Followup after 1 week for FLACO dressing removal Followup after 6 weeks for visit. Admission and Anticipated Discharge Date Admission Date: December 27, 2024 Supervising Physician Co-Signing Physician Notes Resident Physician Supervision Note: I interviewed and examined the patient. Discussed with Dr. Lugo and agree with findings and plan as documented in the note. Any exceptions or clarifications are listed here: Doing well. Meeting milestones. Desires d/c. Instructions re viewed. Documented By: Anamika Hills MD, FACOG Subjective 39 years with [facility] with b/l fallopian tube excision with at 39week POG. #2POD following delivery No active complains Both mom and baby doing well. Mom Lying comfortable on bed. Pain: Mild, intermittent, manageable on painkillers. Lochia: Moderate Diet: Regular OB diet Gas: Aware of passing, no abdominal distension Peeing: Passed Urine after chopra's removal Ambulation: to Bathroom/ Corridor without any complication Answered her queries. Review of Systems Review of Systems: As per HPI Physical Exam Physical Exam: General: Alert and oriented. No acute distress. CVS: S1 S2+ No murmurs, regular rhythm. Respiratory: CTA bilaterally. No rhonchi, wheezes, or crackles. No increased work of breathing. Abdomen: Bowel sound +. Soft, nontender Uterus: Fundus firm and palpable few cm below the umbilicus. Incision site looks healthy: Dry, No swelling, Erythema Lower extremities: No LE edema. No deep calf pain. Results & Data Vital Signs (Past 12 Hours) Vital Signs Temp Pulse Resp BP Pulse Ox O2 Del Method 12/29/24 00:30 36.9 C 64 18 139/88 95 Room Air 12/28/24 20:05 36.7 C 75 20 130/84 94 Room Air Resident Activity Tracking Resident Involvement: Resident Care Provided Care Provided: OB Delivery
[2024-12-29] MEDS ORDERED: bisacodyL 10 MG SUPP PR PRN (09:05)
[2024-12-29 09:19] VITALS: BP 124/85; PULSE 73; TEMP 97.7; O2SAT 97
[2024-12-29] MEDS: IBUPROFEN 600 MG TAB PO PRN (10:26)
[2024-12-29] MEDS ORDERED: ACETAMINOPHEN 325 MG TAB PO PRN (15:05)
--- NOTE | 2024-12-31 18:09 | Discharge Summary ---
Date of Service December 31, 2024 Admission HPI Per Admitting Provider 39yo with [facility] 12/31/24 for repeat and tubal sterilization. and Delivery Plans E. coli UTI dx 10/18 - treatment x 1 week. Repeat urine at next visit GDM on insulin (started insulin 06/06/24) *Wkly NSTs @32wks and Twice wkly @36wks *Serial growth US @24wks *Deliver by [facility] Need for Rhogam due to RH Negative Mother Rhogam given 10/14/24 Previous Section x2 affecting Schedule Rpt at 28wk C/S WITH TUBAL SCHEDULED FOR 12/27/[address] REYES AND DR[address] DELUCA ASSIST AMA *Weekly NST's @ 36wks. Obesity (BMI 40 and higher @ beginning of ) *Growth US @ 32wks *Weekly NSTs @ 34wks *BMI 40 or greater offer detailed/level II anatomy at [facility] *BMI 40 or above offer delivery by [facility]. Placenta Previa *[facility] consult (09/22/24 @ [facility]) MRI- RESOLVED MFM Consult 09/22/2024 Growth US @ 28 weeks - every 4 weeks NST 2x/wk @32 weeks Deliver by 39 weeks May transfer to [facility] in 3rd trimester for delivery Admission Exam (Per Admitting) Constitutional WD/WN, vitals as above Respiratory normal respiratory effort, lungs clear to auscultation no respiratory distress Cardiovascular Rate/Rhythm: regular rate and regular rhythm Gastrointestinal (Abdomen) Inspection/Auscultation: abdomen normal to inspection Percussion/Palpation: abdomen soft; abdomen nontender Skin no rashes, warm and dry Psychiatric A+Ox3, euthymic affect Discharge Data Consultations 12/27/24 05:38 Consult Anesthesiology Stat Procedures Performed Operation Date: 12/27/24 07:30 Actual Procedures p Repeat Section of a viable baby girl at 0828 with a bilateral tubal ligation.(Bilateral) - Sonia Reyes DO Hospital Course (1) delivery delivered: Plan 39 years delivered by [facility] at 39 week POG. #2 POD following Delivery Both mom and baby doing well. Discharge home today. Followup after 1 week for FLACO dressing removal Followup after 6 weeks for visit. Supervising Physician Co-Signing Physician Notes Resident Physician Supervision Note: I interviewed and examined the patient. Discussed with Dr. Lugo and agree with findings and plan as documented in the note. Any exceptions or clarifications are listed here: Doing well. Meeting milestones. Desires d/c. Instructions reviewed. Documented By: Anamika Hills MD, FACOG Coding Level of Care Code None Diagnoses delivery delivered O82
== END 2024-12-29 11:45 | disposition home or self-care (01) | DRG 785 ==
LOC: 4S1 05:32 → EDSTATUS 09:00 → 4E2 11:45
DX: Z3A.39 39 weeks gestation of pregnancy; O24.424 Gestational diabetes mellitus in childbirth, insulin controlled; Z30.2 Encounter for sterilization; Z29.13 Encounter for prophylactic Rho(D) immune globulin; O34.211 Maternal care for low transverse scar from previous cesarean delivery; E66.9 Obesity, unspecified; O99.214 Obesity complicating childbirth; Z37.0 Single live birth